=== PATIENT | male | born 1945 | race Caucasian/White ===

== ENCOUNTER 2017-10-02 13:12 | Emergency (ER) | payer MEDICARE ==
[2017-10-02 13:31] LABS: ADD MAN DIFF? NO
[2017-10-02 13:36] LABS: BASO % 1 % (0-3); EOS # 0.1 x10^3/uL (0.0-0.7); EOS % 1 % (0-3); HEMATOCRIT 40.9 % (39.0-53.0); HEMOGLOBIN 13.8 g/dL (13.0-17.5); LYMPH # 1.6 x10^3/uL (1.0-4.8); LYMPH % 26 % (24-48); MEAN CORPUSCULAR HEMOGLOBIN 33 pg (25-35); MEAN CORPUSCULAR HGB CONC 34 g/dL (31-37); MEAN CORPUSCULAR VOLUME 98 fL (79-100); MONO # 0.4 x10^3/uL (0.0-1.1); MONO % 6 % (0-9); NEUT # 4.3 x10^3uL (1.8-7.7); NEUT % 67 % (31-73); PLATELET COUNT 133 x10^3/uL (140-400); RED BLOOD COUNT 4.17 x10^6/uL (4.30-5.70); RED CELL DISTRIBUTION WIDTH 14.3 % (11.5-14.5); WHITE BLOOD COUNT 6.4 x10^3/uL (4.0-11.0)
[2017-10-02] MEDS: MORPHINE SULFATE 4 MG/ML DISP.SYRIN. IV (13:38)
[2017-10-02] MEDS: ONDANSETRON PF 4 MG/2 ML VIAL. IV (13:38)
[2017-10-02 13:43] LABS: ANION GAP 11 (6-14); BLOOD UREA NITROGEN 34 mg/dL (8-26); BUN/CREATININE RATIO 23 (6-20); CALCIUM 8.9 mg/dL (8.5-10.1); CARBON DIOXIDE 23 mmol/L (21-32); CHLORIDE 105 mmol/L (98-107); CREATININE 1.5 mg/dL (0.7-1.3); GFR 46.1; GLUCOSE 123 mg/dL (70-99); POTASSIUM 3.8 mmol/L (3.5-5.1); SODIUM 139 mmol/L (136-145)
[2017-10-02 13:45] LABS: POC GLUCOSE 103 mg/dL (70-99)
[2017-10-02 13:49] LABS: ALBUMIN 3.7 g/dL (3.4-5.0); ALBUMIN/GLOBULIN RATIO 1.1 (1.0-1.7); ALK PHOS 54 U/L (46-116); ALT (SGPT) 27 U/L (16-63); AST (SGOT) 17 U/L (15-37); CREATINE KINASE 157 U/L (39-308); LIPASE 246 U/L (73-393); MAGNESIUM 1.8 mg/dL (1.8-2.4); TOTAL BILIRUBIN 0.6 mg/dL (0.2-1.0)
[2017-10-02 13:52] LABS: TROPONINI 0.094 ng/mL (0.000-0.055)
[2017-10-02 13:58] LABS: NT-PRO BNP 543 pg/mL (0-124)
[2017-10-02 13:58] LABS: CKMB INDEX 2.2 % (0-4); CKMB MASS 3.5 ng/mL (0.0-3.6); CREATINE KINASE 161 U/L (39-308)
[2017-10-02] MEDS ORDERED: ONDANSETRON PF 4 MG/2 ML VIAL. IV (16:00)
== END 2017-10-02 16:00 | disposition short-term general hospital (02) ==
LOC: ER 13:12
DX: R07.2 Precordial pain (principal); I35.8 Other nonrheumatic aortic valve disorders; R79.89 Other specified abnormal findings of blood chemistry; Z88.0 Allergy status to penicillin
CPT/HCPCS: 36415; 71045; 80053; 82550; 82553; 82962; 83690; 83735; 83880; 84484; 85025; 93005; 96374; 96375; 99285-25; J2270; J2405

== ENCOUNTER 2018-01-13 11:01 | Inpatient (IN) | payer MEDICARE ==
[~2018-01-13] VITALS: Ht 177.8 cm; Wt 95.4 kg
[2018-01-13] MEDS ORDERED: ASPIRIN 325 MG TABLET PO ONE (11:15)
[2018-01-13 11:36] LABS: BASO # 0.1 x10^3/uL (0.0-0.2); BASO % 1 % (0-3); EOS # 0.2 x10^3/uL (0.0-0.7); EOS % 4 % (0-3); HEMATOCRIT 37.2 % (39.0-53.0); HEMOGLOBIN 11.9 g/dL (13.0-17.5); LYMPH # 1.7 x10^3/uL (1.0-4.8); LYMPH % 33 % (24-48); MEAN CORPUSCULAR HEMOGLOBIN 28 pg (25-35); MEAN CORPUSCULAR HGB CONC 32 g/dL (31-37); MEAN CORPUSCULAR VOLUME 86 fL (79-100); MONO # 0.6 x10^3/uL (0.0-1.1); MONO % 11 % (0-9); NEUT # 2.7 x10^3uL (1.8-7.7); NEUT % 51 % (31-73); PLATELET COUNT 161 x10^3/uL (140-400); RED BLOOD COUNT 4.33 x10^6/uL (4.30-5.70); RED CELL DISTRIBUTION WIDTH 16.1 % (11.5-14.5); WHITE BLOOD COUNT 5.2 x10^3/uL (4.0-11.0)
--- NOTE | 2018-01-13 11:41 | EKG ---
[address] [place] [address] Test Date: 2018-01-13 Test Time: 11:07:14 Pat Name: ROHIT DAVID Department: Room: Gender: M Poultry Picker: : [phone] Requested By: ANDRIY DE Order Number: [id number] Reading MD: Miguel Angel Yang MD Measurements Intervals [place] Rate: 54 P: 47 MO: 188 QRS: -45 QRSD: 120 T: 53 QT: 420 QTc: 403 Interpretive Statements SINUS RHYTHM ATRIAL PREMATURE COMPLEX(ES) ABNORMAL LEFT AXIS DEVIATION R-S TRANSITION ZONE IN V LEADS DISPLACED TO THE LEFT LEFT ANTERIOR FASCICULAR BLOCK Electronically Signed On 01-13-2018 14:09:13 CDT by iMguel Angel Yang MD
[2018-01-13 11:44] LABS: PROTHROMBIN TIME PATIENT 14.4 SEC (11.7-14.0)
[2018-01-13 11:56] LABS: CALCIUM 9.1 mg/dL (8.5-10.1); CREATININE 1.3 mg/dL (0.7-1.3); GFR 54.3; POTASSIUM 4.4 mmol/L (3.5-5.1)
[2018-01-13 12:02] LABS: ALBUMIN 3.6 g/dL (3.4-5.0); MAGNESIUM 2.1 mg/dL (1.8-2.4); TOTAL BILIRUBIN 0.5 mg/dL (0.2-1.0); TOTAL PROTEIN 7.2 g/dL (6.4-8.2)
--- NOTE | 2018-01-13 12:34 | PHYS DOC ---
Past Medical History Past Medical History: Arthritis, GERD, High Cholesterol, Heart Disease, Hypertension, Other Additional Past Medical Histor: GOUT Past Surgical History: Coronary Bypass Surgery, Tonsillectomy, Other Additional Past Surgical Histo: AORTIC VALVE REPLACEMENT, L. WRIST, BILAT. ROTATOR CUFF, L. CARPAL, TUNNEL Alcohol Use: Occasionally Drug Use: None Adult General Chief Complaint Chief Complaint: CHEST PAIN-CARDIAC NATURE HPI HPI 72-year-old male with significant cardiac history including CABG in September 2017 at [facility] presents after arriving at cardiac rehabilitation here at [facility] with report of left-sided chest pain Review of Systems Review of Systems Constitutional: Denies fever or chills [] Eyes: Denies change in visual acuity, redness, or eye pain [] HENT: Denies nasal congestion or sore throat [] Respiratory: Denies cough or shortness of breath [] Cardiovascular: No additional information not addressed in HPI [] GI: Denies abdominal pain, nausea, vomiting, bloody stools or diarrhea [] : Denies dysuria or hematuria [] Musculoskeletal: Denies back pain or joint pain [] Integument: Denies rash or skin lesions [] Neurologic: Denies headache, focal weakness or sensory changes [] Endocrine: Denies polyuria or polydipsia [] All other systems were reviewed and found to be within normal limits, except as documented in this note. Current Medications Current Medications Current Medications Medications (Trade) Dose Ordered Sig/Clemente Start Time Stop Time Status Last Admin Dose Admin Aspirin (Goldy Aspirin) 325 mg 1X ONCE 01/13/18 11:15 01/13/18 11:16 DC 01/13/18 11:28 325 MG Info (CONTRAST GIVEN -- Rx MONITORING) 1 each PRN DAILY PRN 01/13/18 14:00 01/15/18 13:59 Iohexol (Omnipaque 300 Mg/ml) 75 ml 1X ONCE 01/13/18 13:45 01/13/18 13:50 DC 01/13/18 14:03 75 ML Sodium Chloride 1,000 ml @ 1,000 mls/hr 1X ONCE 01/13/18 14:00 01/13/18 14:59 DC 01/13/18 14:16 1,000 MLS/HR Allergies Allergies Allergies Coded Allergies Type Severity Reaction Last Updated Verified Penicillins Allergy Intermediate 10/02/17 Yes Physical Exam Physical Exam Constitutional: Well developed, well nourished, no acute distress, non-toxic appearance. [] HENT: Normocephalic, atraumatic, bilateral external ears normal, oropharynx moist, no oral exudates, nose normal. [] Eyes: PERRLA, EOMI, conjunctiva normal, no discharge. [] Neck: Normal range of motion, no tenderness, supple, no stridor. [] Cardiovascular:Heart rate regular rhythm, no murmur [] Lungs & Thorax: Bilateral breath sounds clear to auscultation [] Abdomen: Bowel sounds normal, soft, no tenderness, no masses, no pulsatile masses. [] Skin: Warm, dry, no erythema, no rash. [] Back: No tenderness, no CVA tenderness. [] Extremities: No tenderness, no cyanosis, no clubbing, ROM intact, no edema. [] Neurologic: Alert and oriented X 3, normal motor function, normal sensory function, no focal deficits noted. [] Psychologic: Affect normal, judgement normal, mood normal. [] Current Patient Data Vital Signs Vital Signs Date Time Temp Pulse Resp B/P (MAP) Pulse Ox O2 Delivery O2 Flow Rate FiO2 01/13/18 14:00 52 18 157/73 (101) 97 Room Air 01/13/18 11:26 98.0 98.0 Lab Values Laboratory Tests Test 01/13/18 11:20 White Blood Count 5.2 x10^3/uL (4.0-11.0) Red Blood Count 4.33 x10^6/uL (4.30-5.70) Hemoglobin 11.9 g/dL (13.0-17.5) L Hematocrit 37.2 % (39.0-53.0) L Mean Corpuscular Volume 86 fL (79-100) Mean Corpuscular Hemoglobin 28 pg (25-35) Mean Corpuscular Hemoglobin Concent 32 g/dL (31-37) Red Cell Distribution Width 16.1 % (11.5-14.5) H Platelet Count 161 x10^3/uL (140-400) Neutrophils (%) (Auto) 51 % (31-73) Lymphocytes (%) (Auto) 33 % (24-48) Monocytes (%) (Auto) 11 % (0-9) H Eosinophils (%) (Auto) 4 % (0-3) H Basophils (%) (Auto) 1 % (0-3) Neutrophils # (Auto) 2.7 x10^3uL (1.8-7.7) Lymphocytes # (Auto) 1.7 x10^3/uL (1.0-4.8) Monocytes # (Auto) 0.6 x10^3/uL (0.0-1.1) Eosinophils # (Auto) 0.2 x10^3/uL (0.0-0.7) Basophils # (Auto) 0.1 x10^3/uL (0.0-0.2) Prothrombin Time 14.4 SEC (11.7-14.0) H Prothrombin Time INR 1.2 (0.8-1.1) H D-Dimer (Yenny) 0.97 ug/mlFEU (0.00-0.50) H Sodium Level 142 mmol/L (136-145) Potassium Level 4.4 mmol/L (3.5-5.1) Chloride Level 106 mmol/L (98-107) Carbon Dioxide Level 28 mmol/L (21-32) Anion Gap 8 (6-14) Blood Urea Nitrogen 26 mg/dL (8-26) Creatinine 1.3 mg/dL (0.7-1.3) Estimated GFR (Cockcroft-Gault) 54.3 BUN/Creatinine Ratio 20 (6-20) Glucose Level 91 mg/dL (70-99) Calcium Level 9.1 mg/dL (8.5-10.1) Magnesium Level 2.1 mg/dL (1.8-2.4) Total Bilirubin 0.5 mg/dL (0.2-1.0) Aspartate Amino Transferase (AST) 20 U/L (15-37) Alanine Aminotransferase (ALT) 25 U/L (16-63) Alkaline Phosphatase 68 U/L (46-116) Creatine Kinase 111 U/L (39-308) Creatine Kinase MB (Mass) 2.2 ng/mL (0.0-3.6) Creatine Kinase MB Relative Index 2.0 % (0-4) Troponin I Quantitative 0.086 ng/mL (0.000-0.055) UF-Zkt-D-Type Natriuretic Peptide 749 pg/mL (0-124) H Total Protein 7.2 g/dL (6.4-8.2) Albumin 3.6 g/dL (3.4-5.0) Albumin/Globulin Ratio 1.0 (1.0-1.7) Lipase 265 U/L (73-393) Laboratory Tests 01/13/18 11:20 Laboratory Tests 01/13/18 11:20 EKG EKG @1107: Sinus bradycardia at 55bpm, NO ST elevation, LAFB Radiology/Procedures Radiology/Procedures PROCEDURE: CT ANGIOGRAPHY CHEST Examination: CT ANGIOGRAPHY CHEST History: CHEST PAIN X1HOUR
OMNI 300 75ML, NO PRIORS Comparison/Correlation: None Findings: Axial images of the chest were obtained following 75 cc Omnipaque 300 IV according to pulmonary arteriography protocol. Sagittal and coronal reformatted MIP images were provided. Excellent pulmonary arterial opacification is present. Thoracic aorta is not optimally opacified for purposes of this arteriographic assessment. Sternal wires are present. Prosthetic aortic valve is present. No pneumothorax. Pulmonary arterial vasculature is normal with no thromboembolic disease. Anterior basilar calcified granulomas present. No enlarged thoracic lymph nodes. No suspicious infiltrate. No suspicious pulmonary nodules or masses. Small hiatal hernia is present. Impression: No pulmonary arterial thromboembolic disease or infiltrate. Electronically signed by: Luiz Dc MD (01/13/2018 2:51 PM) [id number] PROCEDURE: VENOUS LOWER EXTREMITY RIGHT EXAM: Right lower extremity venous Doppler sonogram. HISTORY: Edema. TECHNIQUE: Linda scale and color Doppler sonographic evaluation of the right lower extremity veins with spectral waveform analysis was performed. FINDINGS: There is normal color flow, normal compressibility and there are normal spectral waveforms in the common femoral, superficial femoral, popliteal, posterior tibial and greater saphenous veins. IMPRESSION: No Doppler evidence of lower extremity deep venous thrombosis. Electronically signed by: Dotty Coley MD (01/13/2018 2:06 PM) [facility] Course & Med Decision Making Course & Med Decision Making Pertinent Labs and Imaging studies reviewed. (See chart for details) [] Dragon Disclaimer Dragon Disclaimer This electronic medical record was generated, in whole or in part, using a voice recognition dictation system. Departure Departure Impression: Primary Impression: Chest pain Additional Impressions: Elevated troponin Elevated d-dimer Disposition: ADMITTED INPATIENT Admitting Physician: Opal Mccarty Condition: STABLE Referrals: LOLLY MARKS (PCP) Problem Qualifiers Primary Impression: Chest pain Chest pain type: unspecified Qualified Codes: R07.9 - Chest pain, unspecified ANDRIY DE DO Jan 13, 2018 12:33
[2018-01-13] MEDS ORDERED: IOHEXOL 300 MG/ML 100ML VIAL. IV ONE (13:45)
[2018-01-13] MEDS ORDERED: IV NORMAL SALINE 1000ML BAG 1,000 ML IV ONE (14:00)
[2018-01-13] MEDS ORDERED: CONTRAST GIVEN. MC PRN (14:00)
--- NOTE | 2018-01-13 14:10 | RAD ---
EXAM: Right lower extremity venous Doppler sonogram. HISTORY: Edema. TECHNIQUE: Linda scale and color Doppler sonographic evaluation of the right lower extremity veins with spectral waveform analysis was performed. FINDINGS: There is normal color flow, normal compressibility and there are normal spectral waveforms in the common femoral, superficial femoral, popliteal, posterior tibial and greater saphenous veins. IMPRESSION: No Doppler evidence of lower extremity deep venous thrombosis. Electronically signed by: Dotty Coley MD (01/13/2018 2:06 PM) [place] [id number]
[2018-01-13] MEDS: ONDANSETRON PF 4 MG/2 ML VIAL. IV PRN ×2 (14:20→14:22)
[2018-01-13] MEDS: fentaNYL PF VIAL 100 MCG/2 ML VIAL IV PRN ×2 (14:20→14:22)
--- NOTE | 2018-01-13 14:55 | RAD ---
Examination: CT ANGIOGRAPHY CHEST History: CHEST PAIN X1HOUR
OMNI 300 75ML, NO PRIORS Comparison/Correlation: None Findings: Axial images of the chest were obtained following 75 cc Omnipaque 300 IV according to pulmonary arteriography protocol. Sagittal and coronal reformatted MIP images were provided. Excellent pulmonary arterial opacification is present. Thoracic aorta is not optimally opacified for purposes of this arteriographic assessment. Sternal wires are present. Prosthetic aortic valve is present. No pneumothorax. Pulmonary arterial vasculature is normal with no thromboembolic disease. Anterior basilar calcified granulomas present. No enlarged thoracic lymph nodes. No suspicious infiltrate. No suspicious pulmonary nodules or masses. Small hiatal hernia is present. Impression: No pulmonary arterial thromboembolic disease or infiltrate. Electronically signed by: Luiz Dc MD (01/13/2018 2:51 PM) [id number]
--- NOTE | 2018-01-13 15:36 | PDOC2 ---
SVEN SPENCE DIRECTOR SOFTWARE 01/13/18 1536: CARDIAC CONSULT DATE OF CONSULT Date of Consult DATE: 01/13/18 TIME: 15:34 REASON FOR CONSULT Reason for Consult: chest pain REFERRING PHYSICIAN Referring Physician: Gaye SOURCE Source: Chart review HISTORY OF PRESENT ILLNESS HISTORY OF PRESENT ILLNESS 72 year old male who developed left sided chest pain prior to starting cardiac rehab this a.m. CABG X 2/bioprosthetic AVR @ [facility] in September 2017. Pain without radiation and not associated with any other symptoms. Pain described as dull and heavy. Became nauseated after receiving Fentanyl in the ER. Chronic RLE edema and venous ultrasound negative for DVT with CTa of chest negative for PE. Initial troponin was 0.08 without acute changes in EKG. Reason for Visit: chest pain PAST MEDICAL HISTORY Cardiovascular: CAD (s/p CABG), HTN, Hyperlipidemia, Aortic stenosis (s/p AVR) Pulmonary: No pertinent hx CENTRAL NERVOUS SYSTEM: Other (none) GI: GERD Heme/Onc: No pertinent hx Hepatobiliary: No pertinent hx Psych: No pertinent hx Musculoskeletal: Osteoarthritis Rheumatologic: Gout Infectious disease: No pertinent hx ENT: Other (cataracts) Renal/: No pertinent hx Endocrine: No pertinent hx Dermatology: No pertinent hx PAST SURGICAL HISTORY Past Surgical History: CABG, Tonsillectomy, Other (AVR; bilateral rotator cuff repair; anoop in left arm for fracture repair; BIH; plates removed from ankles) FAMILY HISTORY Family History: Other (non-contributory) SOCIAL HISTORY Smoke: Quit (1979) ALCOHOL: occassional (wine weekly; occasional beer) Drugs: None Lives: with Family CURRENT MEDICATIONS CURRENT MEDICATIONS Current Medications Medications (Trade) Dose Ordered Sig/Clemente Route PRN Reason Start Time Stop Time Status Last Admin Dose Admin Aspirin (Goldy Aspirin) 325 mg 1X ONCE PO 01/13/18 11:15 01/13/18 11:16 DC 01/13/18 11:28 Iohexol (Omnipaque 300 Mg/ml) 75 ml 1X ONCE IV 01/13/18 13:45 01/13/18 13:50 DC 01/13/18 14:03 Sodium Chloride 1,000 ml @ 1,000 mls/hr 1X ONCE IV 01/13/18 14:00 01/13/18 14:59 DC 01/13/18 14:16 Ondansetron HCl (Zofran) 4 mg PRN Q8HRS PRN IV NAUSEA/VOMITING 01/13/18 14:15 01/14/18 14:14 01/13/18 14:22 Fentanyl Citrate (Fentanyl 2ml Vial) 50 mcg PRN Q2HR PRN IV PAIN 01/13/18 14:15 01/14/18 14:14 01/13/18 14:22 ALLERGIES ALLERGIES: Coded Allergies: Penicillins (Verified Allergy, Intermediate, 10/02/17) ROS General: No: Chills, Night Sweats, Fatigue, Malaise, Appetite, Other PSYCHOLOGICAL ROS: No: Anxiety, Behavioral Disorder, Concentration difficultie , Decreased libido, Depression, Disorientation, Hallucinations, Hostility, Irritablity, Memory difficulties, Mood Swings, Obsessive thoughts, Physical abuse, Sexual abuse, Sleep disturbances, Suicidal ideation, Other Eyes: No Blurry vision, No Decreased vision, No Double vision, No Dry eyes, No Excessive tearing, No Eye Pain, No Itchy Eyes, No Loss of vision, No Photophobia , No Scotomata, No Uses contacts, No Uses glasses, No Other HEENT: No: Heacaches, Visual Changes, Hearing change, Nasal congestion, Nasal discharge, Oral lesions, Sinus pain, Sore Throat, Epistaxis, Sneezing, Snoring, Tinnitus, Vertigo, Vocal changes, Other ALLERGY AND IMMUNOLOGY: No: Hives, Insect Bite Sensitivity, Itchy/Watery Eyes, Nasal Congestion, Post Nasal Drip, Seasonal Allergies, Other Hematological and Lymphatic: No: Bleeding Problems, Blood Clots, Blood Transfusions, Brusing, Night Sweats, Pallor, Swollen Lymph Nodes, Other ENDOCRINE: No: Breast Changes, Galactorrhea, Hair Pattern Changes, Hot Flashes , Malaise/lethargy, Mood Swings, Palpitations, Polydipsia/polyuria, Skin Changes , Temperature Intolerance, Unexpected Weight Changes, Other Respiratory: No: Cough, Hemoptysis, Orthopnea, Pleuritic Pain, Shortness of breath, SOB with excertion, Sputum Changes, Stridor, Tachypnea, Wheezing, Other Cardiovascular: No Chest Pain, No Palpitations, No Orthopnea, No Paroxysmal Noc. Dyspnea, No Edema, No Lt Headedness, No Other Gastrointestinal: No Nausea, No Vomiting, No Abdominal Pain, No Diarrhea, No Constipation, No Melena, No Hematochezia, No Other Genitourinary: No Dysuria, No Frequency, No Incontinence, No Hematuria, No Retention, No Discharge, No Urgency, No Pain, No Flank Pain, No Other Musculoskeletal: No Gait Disturbance, No Joint Pain, No Joint Stiffness, No Joint Swelling, No Muscle Pain, No Muscular Weakness, No Pain In:, No Swelling In:, No Other Neurological: No Behavorial Changes, No Bowel/Bladder ControlChng, No Confusion , No Dizziness, No Gait Disturbance, No Headaches, No Impaired Coord/balance, No Memory Loss, No Numbness/Tingling, No Seizures, No Speech Problems, No Tremors, No Visual Changes, No Weakness, No Other Skin: No Dry Skin, No Eczema, No Hair Changes, No Lumps, No Mole Changes, No Mottling, No Nail Changes, No Pruritus, No Rash, No Skin Lesion Changes, No Other, No Acne PHYSICAL EXAM General: Alert, Oriented X3, mild distress HEENT: Atraumatic Lungs: Clear to auscultation, Normal air movement Heart: Normal S1, Normal S2, Other (pain is reproducible with palpation of left chest) Abdomen: Normal bowel sounds, Soft Extremities: No edema Skin: No rashes Neuro: Normal speech Psych/Mental Status: Mental status NL, Mood NL MUSCULOSKELETAL: No deformity VITALS VITALS Vital Signs Date Time Temp Pulse Resp B/P (MAP) Pulse Ox O2 Delivery O2 Flow Rate FiO2 01/13/18 15:00 52 18 154/77 (102) 97 Room Air 01/13/18 11:26 98.0 98.0 LABS Lab: Laboratory Tests Test 01/13/18 11:20 White Blood Count 5.2 x10^3/uL (4.0-11.0) Red Blood Count 4.33 x10^6/uL (4.30-5.70) Hemoglobin 11.9 g/dL (13.0-17.5) Hematocrit 37.2 % (39.0-53.0) Mean Corpuscular Volume 86 fL (79-100) Mean Corpuscular Hemoglobin 28 pg (25-35) Mean Corpuscular Hemoglobin Concent 32 g/dL (31-37) Red Cell Distribution Width 16.1 % (11.5-14.5) Platelet Count 161 x10^3/uL (140-400) Neutrophils (%) (Auto) 51 % (31-73) Lymphocytes (%) (Auto) 33 % (24-48) Monocytes (%) (Auto) 11 % (0-9) Eosinophils (%) (Auto) 4 % (0-3) Basophils (%) (Auto) 1 % (0-3) Neutrophils # (Auto) 2.7 x10^3uL (1.8-7.7) Lymphocytes # (Auto) 1.7 x10^3/uL (1.0-4.8) Monocytes # (Auto) 0.6 x10^3/uL (0.0-1.1) Eosinophils # (Auto) 0.2 x10^3/uL (0.0-0.7) Basophils # (Auto) 0.1 x10^3/uL (0.0-0.2) Prothrombin Time 14.4 SEC (11.7-14.0) Prothromb Time International Ratio 1.2 (0.8-1.1) D-Dimer (Yenny) 0.97 ug/mlFEU (0.00-0.50) Sodium Level 142 mmol/L (136-145) Potassium Level 4.4 mmol/L (3.5-5.1) Chloride Level 106 mmol/L (98-107) Carbon Dioxide Level 28 mmol/L (21-32) Anion Gap 8 (6-14) Blood Urea Nitrogen 26 mg/dL (8-26) Creatinine 1.3 mg/dL (0.7-1.3) Estimated GFR (Cockcroft-Gault) 54.3 BUN/Creatinine Ratio 20 (6-20) Glucose Level 91 mg/dL (70-99) Calcium Level 9.1 mg/dL (8.5-10.1) Magnesium Level 2.1 mg/dL (1.8-2.4) Total Bilirubin 0.5 mg/dL (0.2-1.0) Aspartate Amino Transf (AST/SGOT) 20 U/L (15-37) Alanine Aminotransferase (ALT/SGPT) 25 U/L (16-63) Alkaline Phosphatase 68 U/L (46-116) Creatine Kinase 111 U/L (39-308) Creatine Kinase MB (Mass) 2.2 ng/mL (0.0-3.6) Creatine Kinase MB Relative Index 2.0 % (0-4) Troponin I Quantitative 0.086 ng/mL (0.000-0.055) IL-Udz-V-Type Natriuretic Peptide 749 pg/mL (0-124) Total Protein 7.2 g/dL (6.4-8.2) Albumin 3.6 g/dL (3.4-5.0) Albumin/Globulin Ratio 1.0 (1.0-1.7) Lipase 265 U/L (73-393) IMAGES IMAGES CTA chest: negative pulmonary embolism EKG EKG no acute changes ASSESSMENT/PLAN ASSESSMENT/PLAN 1. left chest pain --EKG and troponin levels not consistent with AMI; continue serial markers --pain is reproducible with palpation of left chest and suspect related to [place] harvest for CABG in September --request records from [facility] system --TTE in a.m. to evaluate LVEF and assess bioprosthetic AVR 2. HTN --continue home meds 3. HLD --check FLP in a.m. --continue statin therapy 4. nausea due to fentanyl 5. GERD --continue home meds 6. AVR --TTE in a.m CUCO AYALA MD 01/13/18 2136: CARDIAC CONSULT ASSESSMENT/PLAN ASSESSMENT/PLAN Patient seen and examined. Agree with SEO ASSISTANT's assessment and plan. CP with atypical features and most probably musculoskeletal Slight troponin elevation probably demand ischemia CAD s/p recent CABG appears clinically stable Check 2D echo to assess LV function, rule out WMA and assess function of bioprosthetic aortic valve Thank you for your consultation SVEN SPENCE APRN Jan 13, 2018 15:36 CUCO AYALA MD Jan 13, 2018 21:36
[2018-01-13] MEDS: METOPROLOL TART IMMED RELEASE 25 MG TABLET. PO SCH ×3 (16:00→20:59)
[2018-01-13] MEDS ORDERED: ONDANSETRON PF 4 MG/2 ML VIAL. IV PRN (16:00)
[2018-01-13] MEDS ORDERED: PROCHLORPERAZINE 5 MG TABLET. PO PRN (16:15)
[2018-01-13] MEDS ORDERED: LORazepam 1 MG TABLET PO PRN (16:15)
[2018-01-13 16:29] VITALS: BP 169/78
--- NOTE | 2018-01-13 17:34 | PDOC1 ---
History and Physical Date of Admission Date of Admission DATE: 01/13/18 TIME: 17:29 History of Present Illness History of Present Illness Mr. Rowland is a 72-year-old male admit with chest pain. Left side cehst pain with pressure, worse after exertion, but also pain to palpation of the left side of the chest He has significant cardiac history including CABG in September 2017 at [facility] w/ bioprosthetic valve at same time. He was given fentanyl in the ER for pain and now has uncontrolled nausea, weakness, n Past Medical History Cardiovascular: CAD (s/p CABG), HTN, Hyperlipidemia, Aortic stenosis (s/p AVR) Pulmonary: No pertinent hx CENTRAL NERVOUS SYSTEM: Other (none) GI: GERD Heme/Onc: No pertinent hx Hepatobiliary: No pertinent hx Psych: No pertinent hx Musculoskeletal: Osteoarthritis Rheumatologic: Gout Infectious disease: No pertinent hx ENT: Other (cataracts) Renal/: No pertinent hx Endocrine: No pertinent hx Dermatology: No pertinent hx Past Surgical History Past Surgical History: CABG, Tonsillectomy, Other (AVR; bilateral rotator cuff repair; anoop in left arm for fracture repair; BIH; plates removed from ankles) Family History Family History: No Significant, Other (non-contributory) Social History Smoke: Quit (1979) ALCOHOL: occassional (wine weekly; occasional beer) Drugs: None Current Problem List Problem List Problems Medical Problems: (1) Chest pain Status: Acute (2) Elevated d-dimer Status: Acute (3) Elevated troponin Status: Acute Current Medications Current Medications Current Medications Aspirin (Goldy Aspirin) 325 mg 1X ONCE PO Last administered on 01/13/18at 11:28 ; Start 01/13/18 at 11:15; Stop 01/13/18 at 11:16; Status DC Iohexol (Omnipaque 300 Mg/ml) 75 ml 1X ONCE IV Last administered on 01/13/18at 14:03; Start 01/13/18 at 13:45; Stop 01/13/18 at 13:50; Status DC Info (CONTRAST GIVEN -- Rx MONITORING) 1 each PRN DAILY PRN MC SEE COMMENTS; Start 01/13/18 at 14:00; Stop 01/15/18 at 13:59 Sodium Chloride 1,000 ml @ 1,000 mls/hr 1X ONCE IV Last administered on at 14:16; Start 01/13/18 at 14:00; Stop 01/13/18 at 14:59; Status DC Ondansetron HCl (Zofran) 4 mg PRN Q8HRS PRN IV NAUSEA/VOMITING Last administered on 01/13/18at 14:22; Start 01/13/18 at 14:15; Stop 01/13/18 at 16:01 ; Status DC Fentanyl Citrate (Fentanyl 2ml Vial) 50 mcg PRN Q2HR PRN IV PAIN Last administered on 01/13/18at 14:22; Start 01/13/18 at 14:15; Stop 01/14/18 at 14:14 Lidocaine (Lidoderm) 1 patch DAILY TD ; Start 01/13/18 at 16:00 Miscellaneous (Lidoderm Patch Removal) 1 ea QHS MC ; Start 01/13/18 at 21:00 Ondansetron HCl (Zofran) 4 mg PRN Q8HRS PRN IV NAUSEA/VOMITING; Start 01/13/18 at 16:00 Metoprolol Tartrate (Lopressor) 25 mg BID PO ; Start 01/13/18 at 16:00 Lorazepam (Ativan) 1 mg PRN Q6HRS PRN PO ANXIETY / AGITATION; Start 01/13/18 at 16:15 Prochlorperazine Maleate (Compazine) 5 mg PRN Q6HRS PRN PO NAUSEA/VOMITING; Start 01/13/18 at 16:15 Allergies Allergies: Coded Allergies: Penicillins (Verified Allergy, Intermediate, 10/02/17) ROS General: YES: Chills, Fatigue; No: Night Sweats, Malaise, Appetite, Other PSYCHOLOGICAL ROS: YES: Sleep disturbances; No: Anxiety, Behavioral Disorder, Concentration difficultie, Decreased libido , Depression, Disorientation, Hallucinations, Hostility, Irritablity, Memory difficulties, Mood Swings, Obsessive thoughts, Physical abuse, Sexual abuse, Suicidal ideation, Other Eyes: No Blurry vision, No Decreased vision, No Double vision, No Dry eyes, No Excessive tearing, No Eye Pain, No Itchy Eyes, No Loss of vision, No Photophobia , No Scotomata, No Uses contacts, No Uses glasses, No Other Respiratory: No: Cough, Hemoptysis, Orthopnea, Pleuritic Pain, Shortness of breath, SOB with excertion, Sputum Changes, Stridor, Tachypnea, Wheezing, Other Cardiovascular: yes Chest Pain; No Palpitations, No Orthopnea, No Paroxysmal Noc. Dyspnea, No Edema, No Lt Headedness, No Other Gastrointestinal: Yes Nausea Genitourinary: No Dysuria, No Frequency, No Incontinence, No Hematuria, No Retention, No Discharge, No Urgency, No Pain, No Flank Pain, No Other, No , No , No , No , No , No , No Musculoskeletal: No Gait Disturbance, No Joint Pain, No Joint Stiffness, No Joint Swelling, No Muscle Pain, No Muscular Weakness, No Pain In:, No Swelling In:, No Other Neurological: No Behavorial Changes, No Bowel/Bladder ControlChng, No Confusion , No Dizziness, No Gait Disturbance, No Headaches, No Impaired Coord/balance, No Memory Loss, No Numbness/Tingling, No Seizures, No Speech Problems, No Tremors, No Visual Changes, No Weakness, No Other Skin: No Dry Skin, No Eczema, No Hair Changes, No Lumps, No Mole Changes, No Mottling, No Nail Changes, No Pruritus, No Rash, No Skin Lesion Changes, No Other, No Acne Physical Exam General: Alert, Cooperative, moderate distress HEENT: PERRLA, Mucous membr. moist/pink Lungs: Clear to auscultation Heart: S1S2, murmurs Extremities: No clubbing Skin: No rashes Neuro: Normal speech, Sensation intact Psych/Mental Status: Mood NL, Other (nausea, upset, ) Vitals Vitals Vital Signs Date Time Temp Pulse Resp B/P (MAP) Pulse Ox O2 Delivery O2 Flow Rate FiO2 01/13/18 16:29 97.3 57 20 169/78 (108) 100 Room Air 97.3 Labs Labs Laboratory Tests Test 01/13/18 11:20 White Blood Count 5.2 x10^3/uL (4.0-11.0) Red Blood Count 4.33 x10^6/uL (4.30-5.70) Hemoglobin 11.9 g/dL (13.0-17.5) Hematocrit 37.2 % (39.0-53.0) Mean Corpuscular Volume 86 fL (79-100) Mean Corpuscular Hemoglobin 28 pg (25-35) Mean Corpuscular Hemoglobin Concent 32 g/dL (31-37) Red Cell Distribution Width 16.1 % (11.5-14.5) Platelet Count 161 x10^3/uL (140-400) Neutrophils (%) (Auto) 51 % (31-73) Lymphocytes (%) (Auto) 33 % (24-48) Monocytes (%) (Auto) 11 % (0-9) Eosinophils (%) (Auto) 4 % (0-3) Basophils (%) (Auto) 1 % (0-3) Neutrophils # (Auto) 2.7 x10^3uL (1.8-7.7) Lymphocytes # (Auto) 1.7 x10^3/uL (1.0-4.8) Monocytes # (Auto) 0.6 x10^3/uL (0.0-1.1) Eosinophils # (Auto) 0.2 x10^3/uL (0.0-0.7) Basophils # (Auto) 0.1 x10^3/uL (0.0-0.2) Prothrombin Time 14.4 SEC (11.7-14.0) Prothromb Time International Ratio 1.2 (0.8-1.1) D-Dimer (Yenny) 0.97 ug/mlFEU (0.00-0.50) Sodium Level 142 mmol/L (136-145) Potassium Level 4.4 mmol/L (3.5-5.1) Chloride Level 106 mmol/L (98-107) Carbon Dioxide Level 28 mmol/L (21-32) Anion Gap 8 (6-14) Blood Urea Nitrogen 26 mg/dL (8-26) Creatinine 1.3 mg/dL (0.7-1.3) Estimated GFR (Cockcroft-Gault) 54.3 BUN/Creatinine Ratio 20 (6-20) Glucose Level 91 mg/dL (70-99) Calcium Level 9.1 mg/dL (8.5-10.1) Magnesium Level 2.1 mg/dL (1.8-2.4) Total Bilirubin 0.5 mg/dL (0.2-1.0) Aspartate Amino Transf (AST/SGOT) 20 U/L (15-37) Alanine Aminotransferase (ALT/SGPT) 25 U/L (16-63) Alkaline Phosphatase 68 U/L (46-116) Creatine Kinase 111 U/L (39-308) Creatine Kinase MB (Mass) 2.2 ng/mL (0.0-3.6) Creatine Kinase MB Relative Index 2.0 % (0-4) Troponin I Quantitative 0.086 ng/mL (0.000-0.055) AZ-Jnb-Z-Type Natriuretic Peptide 749 pg/mL (0-124) Total Protein 7.2 g/dL (6.4-8.2) Albumin 3.6 g/dL (3.4-5.0) Albumin/Globulin Ratio 1.0 (1.0-1.7) Lipase 265 U/L (73-393) Laboratory Tests Test 01/13/18 11:20 White Blood Count 5.2 x10^3/uL (4.0-11.0) Red Blood Count 4.33 x10^6/uL (4.30-5.70) Hemoglobin 11.9 g/dL (13.0-17.5) Hematocrit 37.2 % (39.0-53.0) Mean Corpuscular Volume 86 fL (79-100) Mean Corpuscular Hemoglobin 28 pg (25-35) Mean Corpuscular Hemoglobin Concent 32 g/dL (31-37) Red Cell Distribution Width 16.1 % (11.5-14.5) Platelet Count 161 x10^3/uL (140-400) Neutrophils (%) (Auto) 51 % (31-73) Lymphocytes (%) (Auto) 33 % (24-48) Monocytes (%) (Auto) 11 % (0-9) Eosinophils (%) (Auto) 4 % (0-3) Basophils (%) (Auto) 1 % (0-3) Neutrophils # (Auto) 2.7 x10^3uL (1.8-7.7) Lymphocytes # (Auto) 1.7 x10^3/uL (1.0-4.8) Monocytes # (Auto) 0.6 x10^3/uL (0.0-1.1) Eosinophils # (Auto) 0.2 x10^3/uL (0.0-0.7) Basophils # (Auto) 0.1 x10^3/uL (0.0-0.2) Prothrombin Time 14.4 SEC (11.7-14.0) Prothromb Time International Ratio 1.2 (0.8-1.1) D-Dimer (Yenny) 0.97 ug/mlFEU (0.00-0.50) Sodium Level 142 mmol/L (136-145) Potassium Level 4.4 mmol/L (3.5-5.1) Chloride Level 106 mmol/L (98-107) Carbon Dioxide Level 28 mmol/L (21-32) Anion Gap 8 (6-14) Blood Urea Nitrogen 26 mg/dL (8-26) Creatinine 1.3 mg/dL (0.7-1.3) Estimated GFR (Cockcroft-Gault) 54.3 BUN/Creatinine Ratio 20 (6-20) Glucose Level 91 mg/dL (70-99) Calcium Level 9.1 mg/dL (8.5-10.1) Magnesium Level 2.1 mg/dL (1.8-2.4) Total Bilirubin 0.5 mg/dL (0.2-1.0) Aspartate Amino Transf (AST/SGOT) 20 U/L (15-37) Alanine Aminotransferase (ALT/SGPT) 25 U/L (16-63) Alkaline Phosphatase 68 U/L (46-116) Creatine Kinase 111 U/L (39-308) Creatine Kinase MB (Mass) 2.2 ng/mL (0.0-3.6) Creatine Kinase MB Relative Index 2.0 % (0-4) Troponin I Quantitative 0.086 ng/mL (0.000-0.055) FT-Jrt-V-Type Natriuretic Peptide 749 pg/mL (0-124) Total Protein 7.2 g/dL (6.4-8.2) Albumin 3.6 g/dL (3.4-5.0) Albumin/Globulin Ratio 1.0 (1.0-1.7) Lipase 265 U/L (73-393) VTE Prophylaxis Ordered VTE Prophylaxis Devices: No VTE Pharmacological Prophylaxi: Yes Assessment/Plan Assessment/Plan chest pain, Hx angina, CAD reproducible pain, s/p surg, post operative inflammation pain, but will need to limit NSAID long-term is cardiac risk per CV team obesity, BMI 33 hyperlipids, ALBERT THOMPSON MD Jan 13, 2018 17:34
[2018-01-13] MEDS ORDERED: ASPI-630 PO (17:54)
[2018-01-13] MEDS ORDERED: ALLO300T PO (17:54)
[2018-01-13] MEDS ORDERED: ACET325T9 PO (17:54)
[2018-01-13] MEDS ORDERED: PRED5DRO16 EACHEYE (17:54)
[2018-01-13] MEDS ORDERED: EZET10TA18 PO (17:54)
[2018-01-13] MEDS ORDERED: CRESTOR40 MG PO (17:54)
[2018-01-13] MEDS ORDERED: OMEP20TA8 PO (17:54)
[2018-01-13] MEDS ORDERED: OMEG1CAP38 PO (17:54)
[2018-01-13] MEDS ORDERED: CHOL-5 PO (17:54)
[2018-01-13] MEDS ORDERED: TADA5TAB PO (17:54)
[2018-01-13] MEDS ORDERED: MULT1TAB6 PO (17:54)
[2018-01-13] MEDS ORDERED: UBID50TA PO (17:54)
[2018-01-13] MEDS ORDERED: CYAN100072 PO (17:54)
[2018-01-13] MEDS ORDERED: GABA-585 PO (17:54)
[2018-01-13] MEDS ORDERED: METO25TA4 PO (17:54)
[2018-01-13 18:39] VITALS: BP 171/81
[2018-01-13] MEDS ORDERED: ACETAMINOPHEN 325 MG TABLET. PO SCH (19:00)
[2018-01-13] MEDS: LIDOCAINE (700MG/PATCH) PATCH. TD SCH (20:51)
[2018-01-13] MEDS: PATCH REMOVAL. MC SCH (20:52)
[2018-01-13] MEDS: GABAPENTIN 100 MG CAPSULE. PO SCH (20:52)
[2018-01-13] MEDS: DEXAMETHASONE 0.1% OPHTH SOLUTION 5ML BOTTLE. OU SCH (20:53)
[2018-01-13 22:57] VITALS: BP 118/65
[2018-01-14] VITALS (9 sets, daily range): BP systolic 114–177; BP diastolic 46–83
[2018-01-14 04:16] LABS: CHOLESTEROL/HDL RATIO 2.3
[2018-01-14] MEDS: PANTOPRAZOLE 40 MG TABLET.DR. PO SCH (06:12)
[2018-01-14] MEDS: DEXAMETHASONE 0.1% OPHTH SOLUTION 5ML BOTTLE. OU SCH ×5 (06:12→21:55)
[2018-01-14] MEDS ORDERED: NON FORMULARY ITEM (Tadalafil (Cialis) 1 TAB) PO SCH (09:00)
[2018-01-14] MEDS: GABAPENTIN 100 MG CAPSULE. PO SCH ×2 (09:00→14:00)
[2018-01-14] MEDS ORDERED: ATORVASTATIN CALCIUM 40 MG TABLET. PO SCH (09:00)
[2018-01-14] MEDS: METOPROLOL TART IMMED RELEASE 25 MG TABLET. PO SCH ×3 (09:00→21:56)
[2018-01-14] MEDS: LIDOCAINE (700MG/PATCH) PATCH. TD SCH (09:00)
--- NOTE | 2018-01-14 09:50 | CARD ---
MR#: [id number] Date of Study: 01/14/2018 Ordering Physician: SVEN SPENCE, Referring Physician: ALBERT THOMPSON Tech: Wen Andujar RDCS APPROVED REPORT EXAM: Two-dimensional and M-mode echocardiogram with Doppler and color Doppler. Other Information Quality : Good INDICATION Chest Pain Elevated Troponin Surgery/Intervention Status/Post Aortic Valve Replacement: Bioprosthetic Type: Porcine Date: 09/2017 CABG: Date: 09/2017 2D DIMENSIONS RVDd2.9 (2.9-3.5cm)Left Atrium(2D)4.7 (1.6-4.0cm) IVSd1.4 (0.7-1.1cm)Aortic Root(2D)3.0 (2.0-3.7cm) LVDd4.4 (3.9-5.9cm)LVOT Diameter2.0 (1.8-2.4cm) PWd1.5 (0.7-1.1cm)LVDs3.1 (2.5-4.0cm) FS (%) 30.3 %SV51.0 ml LVEF(%)57.9 (>50%) Aortic Valve AoV Peak Gunner.129.3cm/sAoV VTI28.8cm AO Peak GR.6.7mmHgLVOT Peak Gunner.110.3cm/s AO Mean GR.3mmHgAVA (VMAX)2.55cm2 JENNIFER (VTI)2.80cm2 Mitral Valve MV E Ztlvdfsb045.7cm/sMV DECEL NFOJ333is MV A Npminmwa82.1cm/sE/A Ratio1.5 Tricuspid Valve TR P. Gjofpdks066ox/sRAP BDDOWOFA9mmAa TR Peak Gr.51zlFxXXGU04gbIw Pulmonary Vein S1 Dgntbuks66.0cm/sD2 Cwyyrzbc38.2cm/s LEFT VENTRICLE The left ventricle is normal size. There is mild concentric left ventricular hypertrophy. The left ve ntricular systolic function is normal and the ejection fraction is within normal range. The Ejection Fraction is 55-60%. There is normal LV segmental wall motion. Transmitral Doppler flow pattern is Gra de II-pseudonormal filling dynamics. RIGHT VENTRICLE The right ventricle is normal size. The right ventricular systolic function is normal. ATRIA The left atrium is mildly dilated. The right atrium size is normal. The interatrial septum is intact with no evidence for an atrial septal defect or patent foramen ovale as noted on 2-D or Doppler imagi ng. AORTIC VALVE The aortic valve is not well visualized. Doppler and Color Flow revealed no significant aortic regurg itation. Calculated aortic valve area is 2.8 cm2 with maximum pressure gradient of 7 mmHg and mean pr essure gradient of 3 mmHg. Probable transcatheter AVR - Likely Quinones Aziza valve. MITRAL VALVE The mitral valve is calcified but opens well. Mitral annular calcification is mild. There is no evide nce of mitral valve prolapse. There is no mitral valve stenosis. Doppler and Color-flow revealed trac e mitral regurgitation. TRICUSPID VALVE The tricuspid valve is normal in structure and function. Doppler and Color Flow revealed physiologica l tricuspid regurgitation. The PA pressure was estimated at 18 mmHg. There is no tricuspid valve sten osis. PULMONIC VALVE The pulmonic valve is not well visualized. Doppler and Color Flow revealed mild pulmonic valvular reg urgitation. There is no pulmonic valvular stenosis. GREAT VESSELS The aortic root is normal in size. The ascending aorta is normal in size. The IVC was not visualized. PERICARDIAL EFFUSION There is no evidence of significant pericardial effusion. Critical Notification Critical Value: No <Conclusion> The left ventricular systolic function is normal and the ejection fraction is within normal range. Th e Ejection Fraction is 55-60%. There is normal LV segmental wall motion. Probable transcatheter AVR - Likely Quinones Aziza valve. Calculated aortic valve area is 2.8 cm2 wit h maximum pressure gradient of 7 mmHg and mean pressure gradient of 3 mmHg. Signed by : Miguel Angel Yang, Electronically Approved : 01/14/2018 09:49:18
--- NOTE | 2018-01-14 10:10 | PDOC ---
SVEN SPENCE DRIER TENDER 01/14/18 1010: CARDIO Progress Notes Date and Time Date of Service 01/14/2018 Time of Evaluation 1003 Subjective Subjective: No Chest Pain, No shortness of breath, No Palpitations, Other ( mildly dizzy this a.m. ) Vitals Vitals Vital Signs Date Time Temp Pulse Resp B/P (MAP) Pulse Ox O2 Delivery O2 Flow Rate FiO2 01/14/18 07:08 98.5 52 16 126/68 (87) 94 Room Air 98.5 Weight Weight [ ] Input and Output Intake and Output Intake and Output 01/14/18 07:00 Intake Total 1640 ml Output Total 300 ml Balance 1340 ml Intake Oral 640 ml IV Total 1000 ml Output Urine Total 300 ml Laboratory Labs Laboratory Tests Test 01/13/18 11:20 01/13/18 17:30 01/13/18 20:15 01/14/18 03:35 White Blood Count 5.2 x10^3/uL (4.0-11.0) Red Blood Count 4.33 x10^6/uL (4.30-5.70) Hemoglobin 11.9 g/dL (13.0-17.5) Hematocrit 37.2 % (39.0-53.0) Mean Corpuscular Volume 86 fL (79-100) Mean Corpuscular Hemoglobin 28 pg (25-35) Mean Corpuscular Hemoglobin Concent 32 g/dL (31-37) Red Cell Distribution Width 16.1 % (11.5-14.5) Platelet Count 161 x10^3/uL (140-400) Neutrophils (%) (Auto) 51 % (31-73) Lymphocytes (%) (Auto) 33 % (24-48) Monocytes (%) (Auto) 11 % (0-9) Eosinophils (%) (Auto) 4 % (0-3) Basophils (%) (Auto) 1 % (0-3) Neutrophils # (Auto) 2.7 x10^3uL (1.8-7.7) Lymphocytes # (Auto) 1.7 x10^3/uL (1.0-4.8) Monocytes # (Auto) 0.6 x10^3/uL (0.0-1.1) Eosinophils # (Auto) 0.2 x10^3/uL (0.0-0.7) Basophils # (Auto) 0.1 x10^3/uL (0.0-0.2) Prothrombin Time 14.4 SEC (11.7-14.0) Prothromb Time International Ratio 1.2 (0.8-1.1) D-Dimer (Yenny) 0.97 ug/mlFEU (0.00-0.50) Sodium Level 142 mmol/L (136-145) Potassium Level 4.4 mmol/L (3.5-5.1) Chloride Level 106 mmol/L (98-107) Carbon Dioxide Level 28 mmol/L (21-32) Anion Gap 8 (6-14) Blood Urea Nitrogen 26 mg/dL (8-26) Creatinine 1.3 mg/dL (0.7-1.3) Estimated GFR (Cockcroft-Gault) 54.3 BUN/Creatinine Ratio 20 (6-20) Glucose Level 91 mg/dL (70-99) Calcium Level 9.1 mg/dL (8.5-10.1) Magnesium Level 2.1 mg/dL (1.8-2.4) Total Bilirubin 0.5 mg/dL (0.2-1.0) Aspartate Amino Transf (AST/SGOT) 20 U/L (15-37) Alanine Aminotransferase (ALT/SGPT) 25 U/L (16-63) Alkaline Phosphatase 68 U/L (46-116) Creatine Kinase 111 U/L (39-308) Creatine Kinase MB (Mass) 2.2 ng/mL (0.0-3.6) Creatine Kinase MB Relative Index 2.0 % (0-4) Troponin I Quantitative 0.086 ng/mL (0.000-0.055) 0.082 ng/mL (0.000-0.055) 0.081 ng/mL (0.000-0.055) NF-Nxd-X-Type Natriuretic Peptide 749 pg/mL (0-124) Total Protein 7.2 g/dL (6.4-8.2) Albumin 3.6 g/dL (3.4-5.0) Albumin/Globulin Ratio 1.0 (1.0-1.7) Lipase 265 U/L (73-393) Triglycerides Level 73 mg/dL (0-150) Cholesterol Level 117 mg/dL (0-200) LDL Cholesterol, Calculated 50 mg/dL (0-100) VLDL Cholesterol, Calculated 15 mg/dL (0-40) Non-HDL Cholesterol Calculated 65 mg/dL (0-129) HDL Cholesterol 52 mg/dL (40-60) Cholesterol/HDL Ratio 2.3 Physical Exam HEENT: Neck Supple W Full Motion Chest: Symmetric LUNGS: Clear to Auscultation Heart: S1S2, RRR, murmurs, other (tele: SB) Abdomen: Soft N/T Extremities: No Edema Neurology: alert, oriented, follow commands Assessment Assessment 1. left chest pain, musculoskeletal in etiology --EKG and troponin levels not consistent with AMI; trop peaked @ 0.08 and likely related to accelerated HTN --pain is reproducible with palpation of left chest and suspect related to [place] harvest for CABG in September; now resolved --awaiting records from [facility] system --TTE completed with results pending --if no significant findings in TTE; may discharge later today and f/u with primary sales account associate (Adela) @ [facility] in about 2 weeks 2. HTN --controlled with meds 3. HLD --lipids controlled on high dose statin therapy 4. sinus bradycardia --dizziness not clearly related to this; check orthostatics --continue beta-blockers 5. GERD --continue home meds 6. AVR --TTE result pending CUCO AYALA MD 01/14/18 1634: CARDIO Progress Notes Assessment Assessment Patient seen and examined. Agree with TRIMMER SAWYER's assessment and plan. 2-D echo showed normal LV systolic function and normally functioning bioprosthetic aortic valve Chest pain most probably musculoskeletal No further cardiac workup is indicated at this time SVEN SPENCE APRN Jan 14, 2018 10:10 CUCO AYALA MD Jan 14, 2018 16:34
[2018-01-14] MEDS: OMEGA-3 FATTY ACIDS/FISH OIL 1,000 MG CAPSULE. PO SCH (10:45)
[2018-01-14] MEDS: ASPIRIN CHEWABLE 81 MG TABLET. PO SCH (10:45)
[2018-01-14] MEDS: CYANOCOBALAMIN (VITAMIN B-12) 1,000 MCG TABLET. PO SCH (10:45)
[2018-01-14] MEDS: EZETIMIBE 10 MG TABLET. PO SCH (10:45)
[2018-01-14] MEDS: MULTIVITAMIN with MINERAL TABLET. PO SCH (10:48)
[2018-01-14] MEDS: CHOLECALCIFEROL (VITAMIN D3) 5,000 UNIT CAPSULE PO SCH (10:48)
[2018-01-14] MEDS: ALLOPURINOL 300 MG TABLET. PO SCH (10:48)
--- NOTE | 2018-01-14 13:17 | PDOC3 ---
Discharge Summary [facility] Date of Admission: Jan 13, 2018 Discharge Date: Jan 14, 2018 Admitting Diagnosis chest pain, muscular skeletal pain h/o CAD with CABG AVR bioprothetic htn accelerated elevated trop sinus bradycardia hld GERD Final Diagnosis CONSULTS card Brief Hospital Course Mr. Rowland is a 72 old m, With h/o CAD with CABG 2018, came for chest pain. has mild elevated trop. echo EF 55%. the chest pain is likely 2/2 muscular pain, pt is pain free today. from card standpoint pt can be dced today. dc time 35min. General: Alert, Cooperative, moderate distress HEENT: PERRLA, Mucous membr. moist/pink Lungs: Clear to auscultation Heart: S1S2, murmurs Extremities: No clubbing Skin: No rashes Neuro: Normal speech, Sensation intact Disposition home CONDITION AT DISCHARGE: Improved Scheduled Allopurinol (Allopurinol), 1 TAB PO DAILY, (Reported) Aspirin (Aspirin), 1 TAB PO DAILY, (Reported) Cholecalciferol (Vitamin D3) (Vitamin D3), 10,000 UNIT PO DAILY, (Reported) Ezetimibe (Zetia), 1 TAB PO DAILY, (Reported) Gabapentin (Gabapentin), 100 MG PO TID, (Reported) Metoprolol Tartrate (Metoprolol Tartrate), 0.5 TAB PO BID, (Reported) Rubicon-3 Fatty Acids/Fish Oil (Rubicon 3 Fish Oil Softgel), 1 EACH PO DAILY, ( Reported) Omeprazole (Omeprazole), 1 TAB PO DAILY, (Reported) Prednisolone Acetate (Prednisolone Acetate), 1 DROP EACHEYE QID, (Reported) Rosuvastatin Calcium (Crestor), 1 TAB PO DAILY, (Reported) Tadalafil (Cialis), 1 TAB PO DAILY, (Reported) Miscellaneous Medications Acetaminophen (Tylenol), 500 MG PO, (Reported) Cyanocobalamin (Vitamin B-12) (B-12), 1,000 MCG PO, (Reported) Multivitamin/Iron/Folic Acid (Centrum Complete Multivit Tab), 1 EACH PO, ( Reported) Ubidecarenone (Coq10), 400 MG PO, (Reported) JUSTIN GRAVES MD Jan 14, 2018 13:17
[2018-01-14] MEDS ORDERED: ACETAMINOPHEN 500 MG TABLET PO PRN ×2 (14:15)
--- NOTE | 2018-01-14 15:10 | PDOC ---
PROGRESS NOTES Chief Complaint Chief Complaint chest pain, 2/2 muscular skeletal pain possibly h/o CAD with CABG AVR bioprothetic htn accelerated elevated trop sinus bradycardia hld GERD plan: echo ok, plan to dc today but pt got dizzy, feels sick now dc dc order, back to tele, on metoprolol 12.5mg bid, fu with card neg orthostatic hypotension. zofran prn History of Present Illness History of Present Illness feels sick now, nausea left chest pain feels deep inside yesterday gone Vitals Vitals Vital Signs Date Time Temp Pulse Resp B/P (MAP) Pulse Ox O2 Delivery O2 Flow Rate FiO2 01/14/18 10:05 97.8 54 17 141/73 (95) 96 Room Air 97.8 Physical Exam General: Alert, Cooperative, moderate distress Heart: Normal S1, Normal S2, Other (pain is reproducible with palpation of left chest) Lungs: Clear Abdomen: Normal bowel sounds, Soft Extremities: No clubbing Skin: No rashes Labs LABS Laboratory Tests Test 01/13/18 17:30 01/13/18 20:15 01/14/18 03:35 Troponin I Quantitative 0.082 ng/mL (0.000-0.055) 0.081 ng/mL (0.000-0.055) Triglycerides Level 73 mg/dL (0-150) Cholesterol Level 117 mg/dL (0-200) LDL Cholesterol, Calculated 50 mg/dL (0-100) VLDL Cholesterol, Calculated 15 mg/dL (0-40) Non-HDL Cholesterol Calculated 65 mg/dL (0-129) HDL Cholesterol 52 mg/dL (40-60) Cholesterol/HDL Ratio 2.3 Assessment and Plan Assessmemt and Plan Problems Medical Problems: (1) Chest pain Status: Acute (2) Elevated d-dimer Status: Acute (3) Elevated troponin Status: Acute Comment Review of Relevant I have reviewed the following items wilian (where applicable) has been applied. Labs Laboratory Tests Test 01/13/18 11:20 01/13/18 17:30 01/13/18 20:15 01/14/18 03:35 White Blood Count 5.2 x10^3/uL (4.0-11.0) Red Blood Count 4.33 x10^6/uL (4.30-5.70) Hemoglobin 11.9 g/dL (13.0-17.5) Hematocrit 37.2 % (39.0-53.0) Mean Corpuscular Volume 86 fL (79-100) Mean Corpuscular Hemoglobin 28 pg (25-35) Mean Corpuscular Hemoglobin Concent 32 g/dL (31-37) Red Cell Distribution Width 16.1 % (11.5-14.5) Platelet Count 161 x10^3/uL (140-400) Neutrophils (%) (Auto) 51 % (31-73) Lymphocytes (%) (Auto) 33 % (24-48) Monocytes (%) (Auto) 11 % (0-9) Eosinophils (%) (Auto) 4 % (0-3) Basophils (%) (Auto) 1 % (0-3) Neutrophils # (Auto) 2.7 x10^3uL (1.8-7.7) Lymphocytes # (Auto) 1.7 x10^3/uL (1.0-4.8) Monocytes # (Auto) 0.6 x10^3/uL (0.0-1.1) Eosinophils # (Auto) 0.2 x10^3/uL (0.0-0.7) Basophils # (Auto) 0.1 x10^3/uL (0.0-0.2) Prothrombin Time 14.4 SEC (11.7-14.0) Prothromb Time International Ratio 1.2 (0.8-1.1) D-Dimer (Yenny) 0.97 ug/mlFEU (0.00-0.50) Sodium Level 142 mmol/L (136-145) Potassium Level 4.4 mmol/L (3.5-5.1) Chloride Level 106 mmol/L (98-107) Carbon Dioxide Level 28 mmol/L (21-32) Anion Gap 8 (6-14) Blood Urea Nitrogen 26 mg/dL (8-26) Creatinine 1.3 mg/dL (0.7-1.3) Estimated GFR (Cockcroft-Gault) 54.3 BUN/Creatinine Ratio 20 (6-20) Glucose Level 91 mg/dL (70-99) Calcium Level 9.1 mg/dL (8.5-10.1) Magnesium Level 2.1 mg/dL (1.8-2.4) Total Bilirubin 0.5 mg/dL (0.2-1.0) Aspartate Amino Transf (AST/SGOT) 20 U/L (15-37) Alanine Aminotransferase (ALT/SGPT) 25 U/L (16-63) Alkaline Phosphatase 68 U/L (46-116) Creatine Kinase 111 U/L (39-308) Creatine Kinase MB (Mass) 2.2 ng/mL (0.0-3.6) Creatine Kinase MB Relative Index 2.0 % (0-4) Troponin I Quantitative 0.086 ng/mL (0.000-0.055) 0.082 ng/mL (0.000-0.055) 0.081 ng/mL (0.000-0.055) AO-Ghb-Y-Type Natriuretic Peptide 749 pg/mL (0-124) Total Protein 7.2 g/dL (6.4-8.2) Albumin 3.6 g/dL (3.4-5.0) Albumin/Globulin Ratio 1.0 (1.0-1.7) Lipase 265 U/L (73-393) Triglycerides Level 73 mg/dL (0-150) Cholesterol Level 117 mg/dL (0-200) LDL Cholesterol, Calculated 50 mg/dL (0-100) VLDL Cholesterol, Calculated 15 mg/dL (0-40) Non-HDL Cholesterol Calculated 65 mg/dL (0-129) HDL Cholesterol 52 mg/dL (40-60) Cholesterol/HDL Ratio 2.3 Laboratory Tests Test 01/13/18 17:30 01/13/18 20:15 01/14/18 03:35 Troponin I Quantitative 0.082 ng/mL (0.000-0.055) 0.081 ng/mL (0.000-0.055) Triglycerides Level 73 mg/dL (0-150) Cholesterol Level 117 mg/dL (0-200) LDL Cholesterol, Calculated 50 mg/dL (0-100) VLDL Cholesterol, Calculated 15 mg/dL (0-40) Non-HDL Cholesterol Calculated 65 mg/dL (0-129) HDL Cholesterol 52 mg/dL (40-60) Cholesterol/HDL Ratio 2.3 Medications Current Medications Aspirin (Goldy Aspirin) 325 mg 1X ONCE PO Last administered on 01/13/18at 11:28 ; Start 01/13/18 at 11:15; Stop 01/13/18 at 11:16; Status DC Iohexol (Omnipaque 300 Mg/ml) 75 ml 1X ONCE IV Last administered on 01/13/18at 14:03; Start 01/13/18 at 13:45; Stop 01/13/18 at 13:50; Status DC Info (CONTRAST GIVEN -- Rx MONITORING) 1 each PRN DAILY PRN MC SEE COMMENTS; Start 01/13/18 at 14:00; Stop 01/15/18 at 13:59 Sodium Chloride 1,000 ml @ 1,000 mls/hr 1X ONCE IV Last administered on at 14:16; Start 01/13/18 at 14:00; Stop 01/13/18 at 14:59; Status DC Ondansetron HCl (Zofran) 4 mg PRN Q8HRS PRN IV NAUSEA/VOMITING Last administered on 01/13/18at 14:22; Start 01/13/18 at 14:15; Stop 01/13/18 at 16:01 ; Status DC Fentanyl Citrate (Fentanyl 2ml Vial) 50 mcg PRN Q2HR PRN IV PAIN Last administered on 01/13/18at 14:22; Start 01/13/18 at 14:15; Stop 01/14/18 at 14:14 ; Status DC Lidocaine (Lidoderm) 1 patch DAILY TD Last administered on 01/13/18at 20:51; Start 01/13/18 at 16:00 [facility] ; Start 01/13/18 at 21:00 Ondansetron HCl (Zofran) 4 mg PRN Q8HRS PRN IV NAUSEA/VOMITING; Start 01/13/18 at 16:00 Metoprolol Tartrate (Lopressor) 25 mg BID PO ; Start 01/13/18 at 16:00; Stop at 15:02; Status DC Lorazepam (Ativan) 1 mg PRN Q6HRS PRN PO ANXIETY / AGITATION; Start 01/13/18 at 16:15 Prochlorperazine Maleate (Compazine) 5 mg PRN Q6HRS PRN PO NAUSEA/VOMITING; Start 01/13/18 at 16:15 Acetaminophen (Tylenol) 500 mg PRN Q6HRS PO ; Start 01/13/18 at 19:00; Stop at 14:00; Status DC Allopurinol (Zyloprim) 300 mg DAILY PO Last administered on 01/14/18 10:48; Start 01/14/18 at 09:00 Aspirin (Children'S Aspirin) 81 mg DAILY PO Last administered on 01/14/18at 10: 45; Start 01/14/18 at 09:00 Cyanocobalamin (Vitamin B-12) 1,000 mcg DAILY PO Last administered on at 10:45; Start 01/14/18 at 09:00 EZETIMIBE (Zetia) 10 mg DAILY PO Last administered on 01/14/18at 10:45; Start 01/14/18 at 09:00 Gabapentin (Neurontin) 100 mg TID PO Last administered on 01/13/18at 20:52; Start 01/13/18 at 21:00 Metoprolol Tartrate (Lopressor) 12.5 mg BID PO Last administered on 01/13/18at 20:52; Start 01/13/18 at 21:00 Vitamin D (Vitamin D3) 10,000 unit DAILY PO Last administered on 01/14/18at 10: 48; Start 01/14/18 at 09:00 Fish Oil (Fish Oil) 1,000 mg DAILY PO Last administered on 01/14/18 10:45; Start 01/14/18 at 09:00 Pantoprazole Sodium (Protonix) 40 mg DAILYAC PO Last administered on 01/14/18at 06:12; Start 01/14/18 at 07:30 Dexamethasone (Maxidex) 1 drop Q4HRS W/A OU Last administered on 01/14/18at 13: 56; Start 01/13/18 at 22:00 Atorvastatin Calcium (Lipitor) 80 mg DAILY PO Last administered on 01/14/18at 10 :50; Start 01/14/18 at 09:00 Non-Formulary Medication (Tadalafil (Cialis)) 1 tab DAILY PO ; Start 01/14/18 at 09:00; Status UNV Multivitamins (Thera M Plus) 1 tab DAILY PO Last administered on 01/14/18at 10: 48; Start 01/14/18 at 09:00 Acetaminophen (Tylenol) 500 mg PRN Q6HRS PRN PO MILD PAIN / TEMP; Start at 14:15; Stop 01/14/18 at 14:15; Status DC Acetaminophen (Tylenol) 500 mg PRN Q6HRS PRN PO MILD PAIN / TEMP; Start at 14:15 Active Scripts Active Reported Tylenol (Acetaminophen) 325 Mg Tablet 500 Mg PO Centrum Complete Multivit Tab (Multivitamin/Iron/Folic Acid) 1 Each Tablet 1 Each PO B-12 (Cyanocobalamin (Vitamin B-12)) 1,000 Mcg Tablet 1,000 Mcg PO Vitamin D3 (Cholecalciferol (Vitamin D3)) 10,000 Unit Tablet 10,000 Unit PO DAILY [place] 3 Fish Oil Softgel ([place]-3 Fatty Acids/Fish Oil) 1 Each Capsule.dr 1 Each PO DAILY Coq10 (Ubidecarenone) 50 Mg Tab.chew 400 Mg PO Aspirin 81 Mg Tab.chew 1 Tab PO DAILY Prednisolone Acetate 5 Ml Drops.susp 1 Drop EACHEYE QID Omeprazole 20 Mg Tablet.dr 1 Tab PO DAILY Gabapentin 100 Mg Capsule 100 Mg PO TID Cialis (Tadalafil) 5 Mg Tablet 1 Tab PO DAILY Crestor (Rosuvastatin Calcium) 40 Mg Tablet 1 Tab PO DAILY Metoprolol Tartrate 25 Mg Tablet 0.5 Tab PO BID Zetia (Ezetimibe) 10 Mg Tablet 1 Tab PO DAILY Allopurinol 300 Mg Tablet 1 Tab PO DAILY Vitals/I & O Vital Sign - Last 24 Hours 01/13/18 01/13/18 01/13/18 01/13/18 16:29 18:21 18:39 19:45 Temp 97.3 97.3 97.3 97.3 Pulse 57 52 Resp 20 19 B/P (MAP) 169/78 (108) 171/81 (111) Pulse Ox 100 100 O2 Delivery Room Air Room Air Room Air Room Air 01/13/18 01/13/18 01/14/18 01/14/18 20:52 22:57 03:32 07:08 Temp 98.2 98.3 98.5 98.2 98.3 98.5 Pulse 60 57 52 Resp 16 16 16 B/P (MAP) 134/70 118/65 (82) 114/46 (68) 126/68 (87) Pulse Ox 94 96 94 O2 Delivery Room Air Room Air Room Air 01/14/18 01/14/18 07:31 10:05 Temp 97.8 97.8 Pulse 54 Resp 17 B/P (MAP) 141/73 (95) Pulse Ox 96 O2 Delivery Room Air Room Air Intake and Output 01/13/18 01/13/18 01/14/18 15:00 23:00 07:00 Intake Total 1240 ml 400 ml Output Total 300 ml Balance 940 ml 400 ml JUSTIN GRAVES MD Jan 14, 2018 15:10
[2018-01-14] MEDS ORDERED: MAG HYDROX/ALUMINUM HYD/SIMETH 30 ML ORAL.SUSP PO PRN (16:00)
[2018-01-14] MEDS ORDERED: cloNIDine HCL 0.1 MG TABLET PO PRN (16:45)
[2018-01-14] MEDS ORDERED: GABAPENTIN 100 MG CAPSULE. PO SCH (21:00)
[2018-01-14] MEDS: PATCH REMOVAL. MC SCH (21:56)
[2018-01-15 03:15] VITALS: BP 144/69
[2018-01-15 04:07] LABS: BASO % 1 % (0-3); EOS # 0.2 x10^3/uL (0.0-0.7); EOS % 3 % (0-3); HEMATOCRIT 34.8 % (39.0-53.0); HEMOGLOBIN 11.4 g/dL (13.0-17.5); LYMPH # 2.2 x10^3/uL (1.0-4.8); LYMPH % 38 % (24-48); MEAN CORPUSCULAR HEMOGLOBIN 28 pg (25-35); MEAN CORPUSCULAR HGB CONC 33 g/dL (31-37); MEAN CORPUSCULAR VOLUME 85 fL (79-100); MONO # 0.5 x10^3/uL (0.0-1.1); MONO % 9 % (0-9); NEUT # 2.8 x10^3uL (1.8-7.7); NEUT % 49 % (31-73); PLATELET COUNT 152 x10^3/uL (140-400); RED BLOOD COUNT 4.09 x10^6/uL (4.30-5.70); RED CELL DISTRIBUTION WIDTH 16.6 % (11.5-14.5); WHITE BLOOD COUNT 5.7 x10^3/uL (4.0-11.0)
[2018-01-15 04:48] LABS: CREATININE 1.4 mg/dL (0.7-1.3); GFR 49.8; POTASSIUM 4.1 mmol/L (3.5-5.1)
[2018-01-15] MEDS: DEXAMETHASONE 0.1% OPHTH SOLUTION 5ML BOTTLE. OU SCH ×3 (05:58→13:39)
[2018-01-15] MEDS: PANTOPRAZOLE 40 MG TABLET.DR. PO SCH (05:58)
[2018-01-15 07:41] VITALS: BP 170/80
[2018-01-15] MEDS: METOPROLOL TART IMMED RELEASE 25 MG TABLET. PO SCH (08:38)
[2018-01-15] MEDS: OMEGA-3 FATTY ACIDS/FISH OIL 1,000 MG CAPSULE. PO SCH (08:38)
[2018-01-15] MEDS: EZETIMIBE 10 MG TABLET. PO SCH (08:38)
[2018-01-15] MEDS: CHOLECALCIFEROL (VITAMIN D3) 5,000 UNIT CAPSULE PO SCH (08:38)
[2018-01-15] MEDS: ALLOPURINOL 300 MG TABLET. PO SCH (08:38)
[2018-01-15] MEDS: MULTIVITAMIN with MINERAL TABLET. PO SCH (08:38)
[2018-01-15] MEDS: CYANOCOBALAMIN (VITAMIN B-12) 1,000 MCG TABLET. PO SCH (08:39)
[2018-01-15] MEDS: ASPIRIN CHEWABLE 81 MG TABLET. PO SCH (08:39)
[2018-01-15] MEDS: LIDOCAINE (700MG/PATCH) PATCH. TD SCH ×2 (08:43→08:44)
[2018-01-15] MEDS ORDERED: ATORVASTATIN CALCIUM 40 MG TABLET. PO SCH (09:00)
[2018-01-15 10:48] VITALS: BP 161/85
--- NOTE | 2018-01-15 13:00 | PDOC3 ---
Discharge Summary [facility] Date of Admission: Jan 13, 2018 Discharge Date: Jan 15, 2018 Admitting Diagnosis chest pain, muscular skeletal pain h/o CAD with CABG AVR bioprothetic htn accelerated elevated trop sinus bradycardia hld GERD Final Diagnosis Problems Medical Problems: CONSULTS card Brief Hospital Course Mr. Rowland is a 72 old m, With h/o CAD with CABG 2018, came for chest pain. has mild elevated trop. echo EF 55%. the chest pain is likely 2/2 muscular pain, pt is pain free. Pt was feeling nausea with light headed yesterday, neg orthostatic hypotension. better with gi meds. asked him to take omeprazole daily . he currently is not taking it daily at home. bp slightly high at 150-170s, HR león at 50s, on metoprolol 12.5mg bid. ok to dc as per card wo med change. dc time 35min. General: Alert, Cooperative, moderate distress HEENT: PERRLA, Mucous membr. moist/pink Lungs: Clear to auscultation Heart: S1S2, murmurs Extremities: No clubbing Skin: No rashes Neuro: Normal speech, Sensation intact Disposition home CONDITION AT DISCHARGE: Improved Scheduled Allopurinol (Allopurinol), 1 TAB PO DAILY, (Reported) Aspirin (Aspirin), 1 TAB PO DAILY, (Reported) Cholecalciferol (Vitamin D3) (Vitamin D3), 10,000 UNIT PO DAILY, (Reported) Ezetimibe (Zetia), 1 TAB PO DAILY, (Reported) Gabapentin (Gabapentin), 100 MG PO HS, (Reported) Metoprolol Tartrate (Metoprolol Tartrate), 0.5 TAB PO BID, (Reported) Richardson-3 Fatty Acids/Fish Oil ([place] 3 Fish Oil Softgel), 1 EACH PO DAILY, ( Reported) Omeprazole (Omeprazole), 1 TAB PO DAILY, (Reported) Prednisolone Acetate (Prednisolone Acetate), 1 DROP EACHEYE QID, (Reported) Rosuvastatin Calcium (Crestor), 1 TAB PO DAILY, (Reported) Tadalafil (Cialis), 1 TAB PO DAILY, (Reported) Miscellaneous Medications Acetaminophen (Tylenol), 500 MG PO, (Reported) Cyanocobalamin (Vitamin B-12) (B-12), 1,000 MCG PO, (Reported) Multivitamin/Iron/Folic Acid (Centrum Complete Multivit Tab), 1 EACH PO, ( Reported) Ubidecarenone (Coq10), 400 MG PO, (Reported) JUSTIN GRAVES MD Jan 15, 2018 13:00
[2018-01-15 14:38] VITALS: BP 138/76
== END 2018-01-15 15:15 | disposition home or self-care (01) | DRG 313 ==
LOC: ER 11:01 → 2 NORTH 14:05
PROVIDERS: ADMIT Internal Medicine; ATTEND Internal Medicine
DX: R07.89 Other chest pain (principal); E66.9 Obesity, unspecified; E78.00 Pure hypercholesterolemia, unspecified; E78.5 Hyperlipidemia, unspecified; I10 Essential (primary) hypertension; I25.10 Atherosclerotic heart disease of native coronary artery without angina pectoris; K21.9 Gastro-esophageal reflux disease without esophagitis; H26.9 Unspecified cataract; M19.90 Unspecified osteoarthritis, unspecified site; M10.9 Gout, unspecified; R79.1 Abnormal coagulation profile; R00.1 Bradycardia, unspecified; T40.4X5A Adverse effect of other synthetic narcotics, initial encounter; Y92.89 Other specified places as the place of occurrence of the external cause; Z68.33 Body mass index [BMI] 33.0-33.9, adult; Z95.1 Presence of aortocoronary bypass graft; Z95.3 Presence of xenogenic heart valve; Z90.89 Acquired absence of other organs; Z88.0 Allergy status to penicillin; Z87.891 Personal history of nicotine dependence
CPT/HCPCS: 36415; 71275; 80048; 80053; 80061; 82553; 83690; 83735; 83880; 84484; 85025; 85379; 85610; 93005; 93306; 93971; 96374; 96375; J2405; J3010; J7030; Q9967; 99285-25